=== PATIENT | male | born 2000 | race Caucasian/White ===

== ENCOUNTER 2021-01-30 23:31 | Emergency (ER) | payer SELFPAY ==
--- NOTE | ~2021-01-30 | XR_ITS ---
EXAMINATION: XR hand RT min 3V DATE: 01/31/2021 00:53 INDICATION: Right hand pain and swelling. TECHNIQUE: 3 views of right hand were obtained. COMPARISON: Right hand radiographs 12/31/2016 FINDINGS: The fingers are flexed on all views. No fracture. Joint spaces are normal. There is hand so ft tissue swelling. IMPRESSION: 1. No fracture. Reviewed, dictated and finalized at location A. IMPRESSION: 1. No fracture.
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
[2021-01-30] MEDS: MORPHINE SULFATE (*CRX) 4 MG/ML INJ IM (23:57)
[2021-01-31 00:08] VITALS: BP 150/85; PULSE 108; RESP 20; TEMP 37.1; O2SAT 97
[2021-01-31] MEDS: KETOROLAC 30 MG/ML VIAL (*BKC) IM (00:35)
[2021-01-31 00:40] VITALS: BP 148/80; PULSE 98; RESP 18; TEMP 36.4; O2SAT 98
== END 2021-01-31 00:41 | disposition home or self-care (01) ==
PROVIDERS: Emergency Provider Family Medicine
DX: S60.221A Contusion of right hand, initial encounter (principal); V98.8XXA Other specified transport accidents, initial encounter
CPT/HCPCS: 73130; 96372; 99283; 99284; J1885; J2270

== ENCOUNTER 2021-12-27 07:10 | Emergency (ER) | payer SELFPAY ==
[2021-12-27 07:20] VITALS: BP 126/82; PULSE 74; RESP 20; TEMP 36.8; O2SAT 99
--- NOTE | 2021-12-27 07:52 | ED.GENADULT ---
HPI - General Adult General Chief complaint: Nausea/Vomiting/Diarrhea Stated complaint: headache,vomiting, weak History of Present Illness HPI narrative: Reese is a 21M with a PMH of migraine headaches that presented to the ED with a headache and vomiting. He had a headache start gradually last night. When he woke up he had a few episodes of non-bloody vomiting and continued to have headache pain behind his eyes. It is made worse with light and better with rest. No vision or hearing changes reported. Related Data Allergies Allergy/AdvReac Type Severity Reaction Status Date / Time No Known Allergies Allergy Unverified 01/27/16 15:42 Review of Systems Constitutional: Constitutional: Reports no additional constitutional complaints Eyes: Eyes: Reports no additional eye complaints ENT: Reports system reviewed and no additional complaints, except as documented Cardiovascular: Cardiovascular: Reports no additional cardiovascular complaints Respiratory: Respiratory: Reports no additional respiratory complaints Gastrointestinal: Gastrointestinal: Reports no additional gastrointestinal complaints Genitourinary: Genitourinary: Reports no additional male genitourinary complaints Musculoskeletal: Musculoskeletal: Reports no additional musculoskeletal complaints Integumentary/Breasts: Skin/Breast: Reports system reviewed and no additional complaints, except as docu Neurologic: Reports system reviewed and no additional complaints, except as documented Psychiatric: Psychiatric: Reports no additional psychiatric complaints Endocrine: Endocrine: Reports no additional endocrine complaints Hematologic/Lymphatic: Hematologic/Lymphatic: Reports no additional hematologic/lymphatic complaints Allergic/Immunologic: Allergic/Immunologic: Reports no additional allergic/immunologic complaints [facility] Social History Social History Gender identity (if verbalized by the patient): Male Exam Const: Nutritional Appearance: well nourished Orientation/consciousness: patient oriented x3 Limitations: no limitations HENMT: Head: normal to inspection Ears: external ears normal General nose exam: Normal external nose present Face and sinus: normal facial exam Eyes: Conjunctivae: conjunctivae normal Pupils: Equal, round and reactive pupils present EOM: EOMs intact bilaterally Neck: Neck: normal visual inspection Chest: Chest palpation & inspection: normal inspection of the chest Resp: Effort & Inspection: normal respiratory effort Auscultation: clear to auscultation bilaterally Cardio: Rate: regular rate Rhythm: regular rhythm GI: Inspection: non-distended GI Palp: Yes Soft to palpation and No Tenderness to palpation present (GI) Skin: General skin exam: normal color Rashes: no rashes Neuro: General: patient oriented x3 and moves all extremities Extrem: General: normal to inspection Psych: Mental Status: mental status grossly normal Course Course Emergency Course: headache and nausea resolved with Benadryl, Compazine and fluids Symptoms completely resolved with meds Vital Signs Vital signs: Vital Signs Temperature 98.3 F 12/27/21 07:20 Pulse Rate 74 12/27/21 07:20 Respiratory Rate 20 12/27/21 07:20 Blood Pressure 126/82 12/27/21 07:20 Pulse Oximetry 99 12/27/21 07:20 Oxygen Delivery Room Air 12/27/21 07:20 Temperature 98.4 F 12/27/21 09:00 Pulse Rate 74 12/27/21 09:00 Respiratory Rate 20 12/27/21 09:00 Blood Pressure 126/80 12/27/21 09:00 Pulse Oximetry 99 12/27/21 09:00 Oxygen Delivery Room Air 12/27/21 09:00 Medical Decision Making Vital Signs Vital Signs: Vital Signs Temperature 98.3 F 12/27/21 07:20 Pulse Rate 74 12/27/21 07:20 Respiratory Rate 20 12/27/21 07:20 Blood Pressure 126/82 12/27/21 07:20 Pulse Oximetry 99 12/27/21 07:20 Oxygen Delivery Room Air 12/27/21 07:20
[2021-12-27 08:13] LABS: Basophils Absolute Auto 0.04 K/mm3 (0.00-0.10); Basophils Percent Auto 0.6 % (0.0-1.0); Eosinophils Percent Auto 3.1 % (1.0-6.0); Hematocrit 41.3 % (40.0-54.0); Hemoglobin 14.2 g/dL (14.0-18.0); Immature Granulocyte Absolute 0.03 K/mm3 (0.00-0.00); Immature Granulocyte Percent A 0.5 % (0.0-0.0); Lymphocytes Absolute Auto 1.82 K/mm3 (1.10-4.50); Lymphocytes Percent Auto 28.1 % (18.0-42.0); Mean Corpuscular HGB Conc 34.4 g/dL (32.0-36.0); Mean Corpuscular Hemoglobin 31.1 pg (27.0-31.0); Mean Corpuscular Volume 90.4 fL (78.0-102.0); Mean Platelet Volume 10.3 fl (8.7-11.0); Monocytes Absolute Auto 0.54 K/mm3 (0.10-0.90); Monocytes Percent Auto 8.3 % (2.0-11.0); Neutrophils Absolute Auto 3.8 K/mm3 (1.7-7.2); Neutrophils Percent Auto 59.4 % (50.0-70.0); Platelet Count Result 252 K/mm3 (150-420); Red Blood Count 4.57 M/mm3 (4.70-6.10); Red Cell Distribution Width 12.5 % (11.6-14.4); White Blood Count 6.5 K/mm3 (4.8-10.8)
[2021-12-27] MEDS: diphenhydrAMINE HCl INJ 50 MG/ML VIAL IV PUSH (08:27)
[2021-12-27] MEDS: PROCHLORPERAZINE EDISYLATE 10 MG/2 ML VIAL IV PUSH (08:28)
[2021-12-27] MEDS: SODIUM CHLORIDE 0.9% IV 1,000 ML 999 ML IV CONT (08:28)
[2021-12-27 08:32] LABS: Lactic Acid Reflex 0.6 mmol/L (0.4-2.0)
[2021-12-27 08:41] LABS: Alanine Aminotransferase 19 U/L (16-63); Albumin Level 3.9 g/dL (3.4-5.0); Alkaline Phosphatase 91 U/L (46-116); Anion Gap 7 mmol/L (8-16); Aspartate Amino Transferase 22 U/L (15-37); Bilirubin,Total 0.2 mg/dL (0.00-1.00); Blood Urea Nitrogen 11 mg/dL (7-18); Carbon Dioxide 27 mmol/L (21-32); Chloride 106 mmol/L (98-108); Estimated Glomerular Filt Rate > 60; Glucose 102 mg/dL (70-99); Osmolality Calculated 289 mOsm/kg (285-295); Potassium 4.1 mmol/L (3.5-5.1); Sodium 140 mmol/L (136-145); Total Protein 7.2 g/dL (6.4-8.2)
[2021-12-27 08:41] LABS: Add Urine Microscopic? NO; Appearance Urine Clear (Clear); Bilirubin Urine Negative (Negative); Blood Urine Negative (Negative); Color Urine Light Yellow (Yellow); Glucose Urine UA Negative (Negative); Ketones Urine Negative (Negative); Leukocyte Esterase Ur Negative (Negative); Nitrate Urine Negative (Negative); Protein Urine Negative (Negative); Urobilinogen Urine 0.2 mg/dL (0.2-1.0)
[2021-12-27 08:52] LABS: Lipase 97 U/L (73-393); Magnesium 2.1 mg/dL (1.8-2.4)
[2021-12-27 09:00] VITALS: BP 126/80; PULSE 74; RESP 20; TEMP 36.9; O2SAT 99
== END 2021-12-27 09:05 | disposition home or self-care (01) ==
PROVIDERS: Emergency Provider Family Medicine
DX: G43.909 Migraine, unspecified, not intractable, without status migrainosus (principal)
CPT/HCPCS: 36415; 80053; 81003; 83605; 83690; 83735; 85025; 96361; 96374; 96375; 99284; J0780; J1200; J7030

== ENCOUNTER 2021-12-31 23:42 | Emergency (ER) | payer SELFPAY ==
[2021-12-31 23:59] VITALS: BP 133/92; PULSE 82; RESP 18; TEMP 37; O2SAT 100
--- NOTE | 2022-01-01 00:33 | ED.GENADULT ---
HPI - General Adult General Chief complaint: Ear Stated complaint: ear pain right side History of Present Illness HPI narrative: The patient is a 21-year-old male who went swimming today for the 1st time in a year. He then developed decreased hearing from the right ear along with pain that is sharp and is making it uncomfortable for him in that area. Did have transient bleeding that ear but this is not continued. He has used hydrogen peroxide prior to the bleeding without relief of the pain. Presents here for further evaluation. No fevers or chills or diaphoresis or cough rhinorrhea or nasal congestion no chest or abdominal pain or nausea vomiting or urinary symptoms or respiratory symptoms. No prior history of swimmer's ear or inner ear infection. Related Data Allergies Allergy/AdvReac Type Severity Reaction Status Date / Time No Known Allergies Allergy Unverified 01/27/16 15:42 Review of Systems Review of Systems: All systems reviewed & are unremarkable except as noted in HPI and below Constitutional: Constitutional: Reports no additional constitutional complaints, Denies anorexia, Denies body ache(s), Denies chills, Denies excessive sweating, Denies fatigue, Denies fever(s), Denies frequent falls, Denies headache(s), Denies malaise and Denies poor appetite Eyes: Eyes: Reports no additional eye complaints, Denies blurry vision, Denies change in vision, Denies irritation, Denies itchy eyes and Denies photophobia ENT: Reports system reviewed and no additional complaints, except as documented, Reports as per HPI, Denies Normal hearing present, Denies bleeding gums, Denies change in voice, Denies dental pain, Denies dysphagia, Denies vertigo, Denies dizziness, Reports ear discharge, Reports otalgia, Reports facial pain, Denies headache(s), Reports hearing loss, Denies hoarseness, Denies epistaxis, Denies nasal congestion, Denies neck pain, Denies tinnitus, Denies sinus pressure, Denies sore throat and Denies throat swelling Cardiovascular: Cardiovascular: Reports no additional cardiovascular complaints, Denies chest pain, Denies syncope, Denies rapid heart rate, Denies irregular heart rhythm, Denies leg edema, Denies dyspnea and Denies slow heart rate Respiratory: Respiratory: Reports no additional respiratory complaints, Denies cough, Denies dyspnea, Denies stridor and Denies wheezing Gastrointestinal: Gastrointestinal: Reports no additional gastrointestinal complaints, Denies abdominal pain, Denies melena, Denies hematochezia, Denies dysphagia, Denies diarrhea, Denies nausea and Denies vomiting Genitourinary: Genitourinary: Denies hematuria, Denies oliguria, Denies dysuria, Denies flank pain, Denies urinary frequency and Denies urinary urgency Musculoskeletal: Musculoskeletal: Reports no additional musculoskeletal complaints, Denies abnormal gait, Denies back pain, Denies myalgias, Denies arthralgias, Denies joint swelling, Denies limited range of motion, Denies muscle cramps, Denies muscle weakness, Denies neck pain and Denies numbness Integumentary/Breasts: Skin/Breast: Reports system reviewed and no additional complaints, except as docu, Denies breast pain, Denies change in pigmentation, Denies pruritus, Denies erythema and Denies wounds Neurologic: Reports system reviewed and no additional complaints, except as documented, Reports Normal hearing present, Denies Abnormal speech present, Denies abnormal gait, Denies confusion, Denies vertigo, Denies dizziness, Denies syncope, Denies frequent falls, Denies headache(s), Denies focal weakness, Denies numbness and Denies paresthesias Psychiatric: Psychiatric: Reports no additional psychiatric complaints and Denies confusion Endocrine: Endocrine: Reports no additional endocrine complaints, Denies cold intolerance, Denies excessive sweating, Denies fatigue and Denies heat intolerance Hematologic/Lymphatic: Hematologic/Lymphatic: Reports no additional hematologic/lymphatic complaints, Denies e
[2022-01-01] MEDS: traMADol HCL (*CRX) 50 MG TABLET 100 MG PO (00:34)
[2022-01-01] MEDS: IBUPROFEN 400 MG TABLET 800 MG PO (00:34)
[2022-01-01] MEDS: NEOMYCIN/POLYMYXIN/HYDROCORT OT SUSP 10 ML BTL (*BKC) 4 DROP EACH EAR (00:34)
[2022-01-01] MEDS: ACETAMINOPHEN 325 MG TABLET 975 MG PO (00:35)
[2022-01-01] MEDS: CIPROFLOXACIN 500 MG TAB PO (00:35)
[2022-01-01 01:00] VITALS: BP 118/65; PULSE 85; RESP 18; TEMP 36.8; O2SAT 100
== END 2022-01-01 01:01 | disposition home or self-care (01) ==
PROVIDERS: Emergency Provider Emergency Medicine
DX: H60.91 Unspecified otitis externa, right ear (principal)
CPT/HCPCS: 99283; A9270

== ENCOUNTER 2022-03-05 05:06 | Emergency (ER) | payer SELFPAY ==
[2022-03-05 05:06] VITALS: BP 133/83; PULSE 74; RESP 14; TEMP 36.3; O2SAT 100
--- NOTE | 2022-03-05 05:12 | PC.NURSE ---
Phoned ERP to notify of new pt. Gave a report to ERP. ERP orders 60mg Toradol IM injection. RN writes order down and verbalizes back to ERP.
[2022-03-05] MEDS: KETOROLAC (*BKC) 60 MG/2 ML VIAL IM (05:20)
--- NOTE | 2022-03-05 05:45 | ED.HA ---
HPI - Headache General Chief Complaint: Headache Stated Complaint: head ache Time Seen by Provider: 03/05/22 05:30 Source: patient Mode of arrival: ambulatory Limitations: no limitations History of Present Illness MD elicited complaint: headache Onset (ago): hour(s) (7) Onset description: gradually Location: retro-orbital Severity: moderate Quality & Timing: throbbing Exacerbating factors: light and noise Relieving factors: nothing Context: occurred at rest Associated symptoms: none Treatments prior to arrival: none Related Data Home Medications Medication Instructions Recorded Confirmed No Home Medications 03/05/22 03/05/22 Allergies Allergy/AdvReac Type Severity Reaction Status Date / Time No Known Allergies Allergy Verified 03/05/22 05:11 Review of Systems Review of Systems: All systems reviewed & are unremarkable except as noted in HPI and below PMFSH Surgical History Surgical History (Updated 03/05/22 @ 05:47 by Asutin Mcnair MD) No pertinent past surgical history Social History Social History (Updated 03/05/22 @ 05:48 by Austin Mcnair MD) Smoking status: Never smoker Gender identity (if verbalized by the patient): Male Exam Const: General: healthy appearing, no acute distress and alert Nutritional Appearance: well nourished Orientation/consciousness: patient oriented x3 Limitations: no limitations HENMT: Head: normal to inspection Ears: external ears normal and TM's normal bilaterally Eyes: Conjunctivae: conjunctivae normal Pupils: Equal, round and reactive pupils present EOM: EOMs intact bilaterally Direct Ophthalmoscopy: photophobia Neck: Neck: normal visual inspection Resp: Effort & Inspection: normal respiratory effort Auscultation: clear to auscultation bilaterally Cardio: Rate: regular rate Rhythm: regular rhythm GI: GI Palp: Yes Soft to palpation and No Tenderness to palpation present (GI) Auscultation: normal bowel sounds Back/Spine/Pelvis: Cervical Spine: cervical ROM normal Thoracic/Lumbar Spine: thoraco-lumbar ROM normal Skin: General skin exam: normal color Rashes: no rashes Neuro: General: patient oriented x3, moves all extremities, no focal motor deficits and CN's II-XI intact bilaterally Speech: normal speech Gait exam (Neuro): Normal gait present Extrem: General: normal to inspection and no clubbing, cyanosis or edema Psych: Mental Status: mental status grossly normal Affect: normal affect Attitude: cooperative Course Vital Signs Vital signs: Vital Signs Temperature 36.3 C L 03/05/22 05:06 Pulse Rate 74 03/05/22 05:06 Respiratory Rate 14 03/05/22 05:06 Blood Pressure 133/83 03/05/22 05:06 Pulse Oximetry 100 03/05/22 05:06 Oxygen Delivery Room Air 03/05/22 05:06 Temperature 36.3 C L 03/05/22 05:06 Pulse Rate 67 03/05/22 05:50 Respiratory Rate 16 03/05/22 05:50 Blood Pressure 125/80 03/05/22 05:50 Pulse Oximetry 100 03/05/22 05:50 Oxygen Delivery Room Air 03/05/22 05:50 Discharge Plan Discharge Clinical Impression: Tension headache Patient Disposition: Home, Self-Care Condition: Stable Instructions: Tension Headache (ED) Additional Instructions: Home rest in a quiet dark room drink plenty of fluids. Prescriptions: No Action No Home Medications Follow-up/Referrals: UNKNOWN,DOCTOR [Primary Care Provider] - Stand Alone Forms: Work/School Release IP Time of Disposition: 05:45
[2022-03-05 05:50] VITALS: BP 125/80; PULSE 67; RESP 16; O2SAT 100
== END 2022-03-05 05:54 | disposition home or self-care (01) ==
PROVIDERS: Emergency Provider Emergency Medicine
DX: G44.209 Tension-type headache, unspecified, not intractable (principal)
CPT/HCPCS: 96372; 99283; J1885

== ENCOUNTER 2022-03-13 12:56 | Emergency (ER) | payer SELFPAY ==
[2022-03-13 13:13] VITALS: BP 136/76; PULSE 73; RESP 18; TEMP 36.5; O2SAT 98
[2022-03-13 13:21] VITALS: BP 117/75; PULSE 71; RESP 17; TEMP 36.4; O2SAT 98
--- NOTE | 2022-03-13 13:31 | ED.HA ---
HPI - Headache General Chief Complaint: Headache Stated Complaint: migrane Time Seen by Provider: 03/13/22 12:57 Source: patient Mode of arrival: ambulatory History of Present Illness HPI Narrative: This is a 22-year-old with history of migraines, had migraine headache that started 2:00 a.m. in the morning initially took some ibuprofen but subsequent to that is not taking anything since then there is some history of migraines he rates his pain about a 7/10, there is no fever chills no neck stiffness no nausea or vomiting no blurry vision, he describes the headache is his typical migraine with throbbing. MD elicited complaint: headache and migraine Onset (ago): hour(s) Onset description: gradually Location: left Severity: moderate Pain scale (0-10): 7 Quality & Timing: throbbing Exacerbating factors: movement of head/neck Relieving factors: rest and dark room Context: occurred at rest Associated symptoms: none Related Data Allergies Allergy/AdvReac Type Severity Reaction Status Date / Time No Known Allergies Allergy Verified 03/13/22 13:24 Review of Systems Review of Systems: All systems reviewed & are unremarkable except as noted in HPI and below PMFSH Past Medical History Medical History Migraine Surgical History Surgical History No pertinent past surgical history Social History Social History Smoking status: Never smoker Gender identity (if verbalized by the patient): Male Exam Const: General: healthy appearing and no acute distress HENMT: Head: normal to inspection Face and sinus: normal facial exam Eyes: Conjunctivae: conjunctivae normal Pupils: Equal, round and reactive pupils present EOM: EOMs intact bilaterally Neck: Neck: normal visual inspection Resp: Effort & Inspection: normal respiratory effort Auscultation: clear to auscultation bilaterally Cardio: Rate: regular rate Rhythm: regular rhythm GI: GI Palp: Yes Soft to palpation Auscultation: normal bowel sounds Back/Spine/Pelvis: Back: no CVA tenderness Skin: General skin exam: normal color Rashes: no rashes Wounds: no wounds Neuro: General: patient oriented x3 and moves all extremities Cranial nerves: Yes Nystagmus not present Speech: normal speech Extrem: General: normal to inspection and no clubbing, cyanosis or edema Psych: Mental Status: mental status grossly normal Affect: normal affect Course Course Emergency Course: reassessment of patient pain level has improved after receiving Toradol, advised patient to follow-up with his primary care physician for further evaluation possible [place] valadez for migraine prevention. Vital Signs Vital signs: Vital Signs Temperature 36.5 C 03/13/22 13:13 Pulse Rate 73 03/13/22 13:13 Respiratory Rate 18 03/13/22 13:13 Blood Pressure 136/76 03/13/22 13:13 Pulse Oximetry 98 03/13/22 13:13 Oxygen Delivery Room Air 03/13/22 13:13 Temperature 36.4 C 03/13/22 13:21 Pulse Rate 71 03/13/22 13:21 Respiratory Rate 17 03/13/22 13:21 Blood Pressure 117/75 03/13/22 13:21 Pulse Oximetry 98 03/13/22 13:21 Oxygen Delivery Room Air 03/13/22 13:21 Critical Care Time Critical Care Time Critical Care Time: No Discharge Plan Discharge Clinical Impression: Migraine Patient Disposition: Home, Self-Care Condition: Stable Instructions: Antibiotic Form, Migraine Headache (ED) Additional Instructions: Take medicine as prescribed and follow-up with primary care physician. Prescriptions: New tramadol [Ultram] 50 mg tablet 50 mg PO Q6H PRN (Reason: pain) Qty: 20 0RF Follow-up/Referrals: UNKNOWN,DOCTOR [Primary Care Provider] - Time of Disposition: 13:36
[2022-03-13] MEDS: KETOROLAC (*BKC) 60 MG/2 ML VIAL IM (13:41)
[2022-03-13 13:55] VITALS: BP 132/89; PULSE 75; RESP 19; O2SAT 98
== END 2022-03-13 14:03 | disposition home or self-care (01) ==
PROVIDERS: Emergency Provider Emergency Medicine
DX: G43.909 Migraine, unspecified, not intractable, without status migrainosus (principal)
CPT/HCPCS: 96372; 99283; J1885

== ENCOUNTER 2022-04-22 22:13 | Emergency (ER) | payer SELFPAY ==
[2022-04-22 22:42] VITALS: BP 140/91; PULSE 96; RESP 17; TEMP 36.8; O2SAT 98
[2022-04-22 22:46] VITALS: BP 148/98; PULSE 82; RESP 17; O2SAT 99
[2022-04-22 22:47] VITALS: BP 146/84; PULSE 83; RESP 17; O2SAT 98
[2022-04-22 22:48] VITALS: RESP 18; O2SAT 98
--- NOTE | 2022-04-22 22:49 | PC.NURSE ---
nasal swab for covid and flu sent to lab
[2022-04-22 23:17] LABS: SARS-CoV-2 RNA PCR Negative (Negative)
[2022-04-22 23:18] LABS: Influenza A QL RT-PCR Negative (Negative); Influenza B QL RT-PCR Negative (Negative)
--- NOTE | 2022-04-22 23:38 | ED.FEVER ---
HPI - Fever General Chief Complaint: Fever Stated Complaint: FEVER, EXTREME FATIGUE, CONGESTION Source: patient and RN notes reviewed Mode of arrival: ambulatory Limitations: no limitations History of Present Illness MD elicited complaint: fever, malaise and weakness Onset (ago): hour(s) (13) Context: sick contacts and other(s) with similar symptoms Exacerbating factors: nothing Relieving factors: nothing Associated symptoms: denies other symptoms Related Data Home Medications Medication Instructions Recorded Confirmed No Home Medications 04/22/22 04/22/22 Allergies Allergy/AdvReac Type Severity Reaction Status Date / Time No Known Allergies Allergy Verified 04/22/22 22:41 Review of Systems Review of Systems: All systems reviewed & are unremarkable except as noted in HPI and below PMFSH Past Medical History Medical History Migraine Surgical History Surgical History No pertinent past surgical history Social History Social History Smoking status: Never smoker Gender identity (if verbalized by the patient): Male Exam Const: General: healthy appearing, no acute distress and alert Nutritional Appearance: well nourished Orientation/consciousness: patient oriented x3 Limitations: no limitations HENMT: Head: normal to inspection Ears: external ears normal Face and sinus: normal facial exam Eyes: Conjunctivae: conjunctivae normal Pupils: Equal, round and reactive pupils present EOM: EOMs intact bilaterally Neck: Neck: normal visual inspection Chest: Chest palpation & inspection: normal inspection of the chest Resp: Effort & Inspection: normal respiratory effort Auscultation: clear to auscultation bilaterally Cardio: Rate: regular rate Rhythm: regular rhythm GI: GI Palp: Yes Soft to palpation and No Tenderness to palpation present (GI) Auscultation: normal bowel sounds Back/Spine/Pelvis: Cervical Spine: cervical ROM normal Thoracic/Lumbar Spine: thoraco-lumbar ROM normal Skin: General skin exam: normal color Rashes: no rashes Neuro: General: patient oriented x3, moves all extremities, no focal motor deficits and CN's II-XI intact bilaterally Speech: normal speech Gait exam (Neuro): Normal gait present Extrem: General: normal to inspection and no clubbing, cyanosis or edema Psych: Appearance: grossly normal and well kempt Mental Status: mental status grossly normal Affect: normal affect Attitude: cooperative Course Vital Signs Vital signs: Vital Signs Temperature 36.8 C 04/22/22 22:42 Pulse Rate 96 04/22/22 22:42 Respiratory Rate 17 04/22/22 22:42 Blood Pressure 140/91 H 04/22/22 22:42 Pulse Oximetry 98 04/22/22 22:42 Oxygen Delivery Room Air 04/22/22 22:42 Temperature 36.5 C 04/23/22 00:14 Pulse Rate 89 04/23/22 00:14 Respiratory Rate 18 04/23/22 00:14 Blood Pressure 141/86 H 04/23/22 00:14 Pulse Oximetry 98 04/23/22 00:14 Oxygen Delivery Room Air 04/23/22 00:14 MDM - Fever Lab Data Attestation: I reviewed the patient's lab results. Labs: Lab Results 04/22/22 04/22/22 Range/Units 22:39 22:40 Influenza A (RT-PCR) Negative (Negative) Influenza B (RT-PCR) Negative (Negative) SARS-CoV-2 RNA (RT-PCR) Negative (Negative) Discharge Plan Discharge Clinical Impression: Viral infection Patient Disposition: Home, Self-Care Condition: Stable Instructions: Viral Syndrome (ED) Prescriptions: No Action No Home Medications Follow-up/Referrals: UNKNOWN,DOCTOR [Primary Care Provider] - Stand Alone Forms: Work/School Release IP Time of Disposition: 23:43
[2022-04-23 00:14] VITALS: BP 141/86; PULSE 89; RESP 18; TEMP 36.5; O2SAT 98
== END 2022-04-23 00:15 | disposition home or self-care (01) ==
PROVIDERS: Emergency Provider Emergency Medicine
DX: B34.9 Viral infection, unspecified (principal)
CPT/HCPCS: 87502; 99283; C9803; U0003; U0005

== ENCOUNTER 2022-07-08 05:59 | Emergency (ER) | payer SELFPAY ==
[2022-07-08 06:04] VITALS: BP 132/86; PULSE 94; RESP 20; TEMP 36.7; O2SAT 100
--- NOTE | 2022-07-08 06:04 | ED.EYEPROB ---
HPI - Eye Problem General Chief complaint: Eye Problems Stated complaint: Eye irritation Time Seen by Provider: 07/08/22 06:00 Source: patient and RN notes reviewed Mode of arrival: ambulatory Limitations: no limitations History of Present Illness chief complaint: eye redness Onset (ago): hour(s) (1.5) Onset description: sudden Duration: constant Location: both eyes Eye Symptoms: redness and discharge Place: home Mechanism: none Severity: mild Associated symptoms: none Treatments Prior to Arrival: none Related Data Home Medications Medication Instructions Recorded Confirmed No Home Medications 04/22/22 07/08/22 Allergies Allergy/AdvReac Type Severity Reaction Status Date / Time No Known Allergies Allergy Verified 07/08/22 06:09 Review of Systems Review of Systems: All systems reviewed & are unremarkable except as noted in HPI and below PMFSH Past Medical History Medical History Migraine Surgical History Surgical History No pertinent past surgical history Social History Social History Smoking status: Never smoker Gender identity (if verbalized by the patient): Male Exam Const: General: healthy appearing, no acute distress and alert Nutritional Appearance: well nourished Orientation/consciousness: patient oriented x3 Limitations: no limitations HENMT: Head: normal to inspection Ears: external ears normal Eyes: Eyelids: eyelid abnormality right upper eyelid lid margins crusty/scaly, right lower eyelid lid margins crusty/scaly, left upper eyelid lid margins crusty/scaly and left lower eyelid lid margins crusty/scaly Conjunctivae: conjunctival abnormality bilateral conjunctival injection diffuse Sclera: scleral abnormality bilateral scleral injection diffuse ( Right worse than left) Pupils: Equal, round and reactive pupils present EOM: EOMs intact bilaterally Neck: Neck: normal visual inspection Resp: Effort & Inspection: normal respiratory effort Auscultation: clear to auscultation bilaterally Cardio: Rate: regular rate Rhythm: regular rhythm GI: GI Palp: Yes Soft to palpation and No Tenderness to palpation present (GI) Auscultation: normal bowel sounds Back/Spine/Pelvis: Cervical Spine: cervical ROM normal Thoracic/Lumbar Spine: thoraco-lumbar ROM normal Skin: General skin exam: normal color Rashes: no rashes Neuro: General: patient oriented x3, moves all extremities, no focal motor deficits and CN's II-XI intact bilaterally Speech: normal speech Gait exam (Neuro): Normal gait present Extrem: General: normal to inspection and no clubbing, cyanosis or edema Psych: Mental Status: mental status grossly normal Affect: normal affect Attitude: cooperative Course Vital Signs Vital signs: Vital Signs Temperature 36.7 C 07/08/22 06:04 Pulse Rate 94 07/08/22 06:04 Respiratory Rate 20 07/08/22 06:04 Blood Pressure 132/86 07/08/22 06:04 Pulse Oximetry 100 07/08/22 06:04 Oxygen Delivery Room Air 07/08/22 06:04 Temperature 36.7 C 07/08/22 06:04 Pulse Rate 94 07/08/22 06:04 Respiratory Rate 20 07/08/22 06:04 Blood Pressure 132/86 07/08/22 06:04 Pulse Oximetry 100 07/08/22 06:04 Oxygen Delivery Room Air 07/08/22 06:04 Discharge Plan Discharge Clinical Impression: Bacterial conjunctivitis Patient Disposition: Home, Self-Care Condition: Stable Instructions: Conjunctivitis (ED) Additional Instructions: use the tobramycin 2 drops 3 times a day for 7 days. Prescriptions: No Action No Home Medications Follow-up/Referrals: UNKNOWN,DOCTOR [Primary Care Provider] - Time of Disposition: 06:09
[2022-07-08] MEDS: TOBRAMYCIN SULFATE 0.3% OPHTH SOLN 5 ML 2 DROP EACH EYE (06:21)
== END 2022-07-08 06:34 | disposition home or self-care (01) ==
PROVIDERS: Emergency Provider Emergency Medicine
DX: H10.9 Unspecified conjunctivitis (principal)
CPT/HCPCS: 99283; A9270